=== PATIENT | female | born 1985 | race Caucasian/White ===

== ENCOUNTER 2018-02-03 14:26 | Inpatient (IN) | payer OTHER ==
[~2018-02-03] VITALS: Ht 170.2 cm; Wt 65.4 kg
[2018-02-03 15:42] LABS: BASOPHILS # (AUTO) 0.06 x10^3/uL (0-0.1); BASOPHILS % (AUTO) 0 % (0-1); EOSINOPHILS % (AUTO) 0 % (1-7); LYMPHOCYTES # (AUTO) 1.58 x10^3/uL (1-3.4); LYMPHOCYTES % (AUTO) 11 % (22-44); MD NO; MEAN CORPUSCULAR HEMOGLOBIN 31.7 pg (27.0-34.8); MEAN CORPUSCULAR HGB CONC 34.4 g/dL (32.4-35.8); MEAN PLATELET VOLUME 9.3 fL (7.4-10.4); MONOCYTES # (AUTO) 0.49 x10^3/uL (0.2-0.8); MONOCYTES % (AUTO) 3 % (2-9); NEUTROPHILS # (AUTO) 12.98 x10^3/uL (1.8-6.8); NEUTROPHILS % (AUTO) 86 % (42-75); PLATELET COUNT 239 x10^3/uL (130-400); RED BLOOD COUNT 4.83 x10^6/uL (3.82-5.3); RED CELL DISTRIBUTION WIDTH 12.8 % (9.6-15.2)
[2018-02-03 15:53] LABS: ALANINE AMINOTRANSFERASE 23 U/L (12-78); ALBUMIN 4.5 g/dL (3.4-5.0); ANION GAP 12 mmol/L (5-15); CALCIUM 9.6 mg/dL (8.5-10.1); CHLORIDE 108 mmol/L (98-107); CREATININE 0.81 mg/dL (0.55-1.02)
[2018-02-03 16:10] LABS: ALKALINE PHOSPHATASE 39 U/L (45-117); BILIRUBIN,TOTAL 1.1 mg/dL (0.2-1.0); TOTAL PROTEIN 8.1 g/dL (6.4-8.2)
[2018-02-03] MEDS ORDERED: SODIUM CHLORIDE 0.9% 1,000 ML IV ONE (16:10)
[2018-02-03] MEDS ORDERED: ONDANSETRON 2MG/ML, 2ML ONE (16:20)
[2018-02-03] MEDS ORDERED: SODIUM CHLORIDE 0.9% 1,000ML IVBOLUS ONE (16:30)
[2018-02-03] MEDS ORDERED: SODIUM CHLORIDE FLUSH 10ML SYR IVF ONE (16:30)
[2018-02-03] MEDS ORDERED: ONDANSETRON 2MG/ML, 2ML IVPush ONE (16:30)
[2018-02-03 17:14] LABS: CULTURE INDICATED? YES; MICROSCOPIC INDICATED
[2018-02-03] MEDS ORDERED: PROMETHAZINE 25 MG/ML, 1ML IM ONE (18:30)
[2018-02-03] MEDS ORDERED: PROMETHAZINE 25 MG/ML, 1ML ONE (18:56)
[2018-02-03] MEDS ORDERED: SODIUM CHLORIDE FLUSH 10ML SYR IVF PRN (21:30)
[2018-02-03] MEDS ORDERED: ACETAMINOPHEN 325 MG TABLET PO PRN (21:30)
[2018-02-03] MEDS ORDERED: PROMETHAZINE 25 MG/ML, 1ML IM PRN (21:30)
[2018-02-03] MEDS ORDERED: LABETALOL 5MG/ML, 20ML IVPush PRN (21:30)
[2018-02-03 22:03] VITALS: BP 116/71
[2018-02-03] MEDS: ONDANSETRON 2MG/ML, 2ML IVPush PRN (22:22)
[2018-02-03] MEDS: NS + 20MEQ KCL 1,000 ML IV SCH (22:22)
[2018-02-03 22:37] VITALS: BP 116/71
[2018-02-03] MEDS: METOCLOPRAMIDE 5 MG/ML, 2ML IVPush PRN (23:54)
[2018-02-04 02:31] VITALS: BP 107/63
[2018-02-04] MEDS: ONDANSETRON 2MG/ML, 2ML IVPush PRN (04:22)
[2018-02-04] MEDS: NS + 20MEQ KCL 1,000 ML IV SCH (05:19)
[2018-02-04 05:48] LABS: ANION GAP 11 mmol/L (5-15); CALCIUM 8.3 mg/dL (8.5-10.1); CHLORIDE 112 mmol/L (98-107)
[2018-02-04 05:49] LABS: CREATININE 0.54 mg/dL (0.55-1.02)
[2018-02-04] MEDS ORDERED: POTASSIUM CHLORIDE 40 MEQ in SODIUM CHLORIDE 0.9% 500 ML IV ONE (06:30)
[2018-02-04 08:00] VITALS: BP 126/79
[2018-02-04] MEDS ORDERED: DOXYLAMINE 25MG TABLET PO PRN (08:00)
[2018-02-04] MEDS: PYRIDOXINE 25MG TABLET PO SCH ×3 (08:20→19:43)
[2018-02-04] MEDS: METOCLOPRAMIDE 5 MG/ML, 2ML IVPush PRN ×2 (08:21→21:56)
[2018-02-04] MEDS: DOXYLAMINE 25MG TABLET PO SCH ×2 (10:00→19:43)
[2018-02-04] MEDS: THIAMINE 100MG TABLET PO SCH (12:07)
[2018-02-04] MEDS: ONDANSETRON ODT 4 MG PO PRN ×2 (12:08→18:26)
[2018-02-04] MEDS: LACTATED RINGERS 1,000 ML IV SCH ×2 (12:09→19:44)
[2018-02-04 14:00] VITALS: BP 120/75
[2018-02-04] MEDS: METOCLOPRAMIDE 10MG TABLET PO PRN (15:14)
[2018-02-04 15:23] LABS: ANION GAP 10 mmol/L (5-15); CALCIUM 8.4 mg/dL (8.5-10.1); CHLORIDE 107 mmol/L (98-107); CREATININE 0.54 mg/dL (0.55-1.02)
[2018-02-04 18:35] VITALS: BP 140/77
[2018-02-04] MEDS ORDERED: DOXYLAMINE 25MG TABLET PO SCH (21:00)
[2018-02-05] MEDS: ONDANSETRON ODT 4 MG PO PRN (00:22)
[2018-02-05 01:34] VITALS: BP 138/84
[2018-02-05] MEDS: LACTATED RINGERS 1,000 ML IV SCH ×2 (03:18→11:43)
[2018-02-05] MEDS: METOCLOPRAMIDE 5 MG/ML, 2ML IVPush PRN (04:02)
[2018-02-05 07:28] VITALS: BP 103/60
[2018-02-05] MEDS: PYRIDOXINE 25MG TABLET PO SCH ×3 (08:07→19:11)
[2018-02-05] MEDS: THIAMINE 100MG TABLET PO SCH (08:07)
[2018-02-05] MEDS: DOXYLAMINE 25MG TABLET PO SCH ×2 (08:08→19:11)
[2018-02-05] MEDS: OMEPRAZOLE 20 MG CAPSULE.DR PO SCH (11:41)
[2018-02-05 12:38] VITALS: BP 118/77
[2018-02-05] MEDS: METOCLOPRAMIDE 10MG TABLET PO PRN ×3 (13:06→19:10)
[2018-02-05 22:00] VITALS: BP 128/84
[2018-02-06] MEDS: LACTATED RINGERS 1,000 ML IV SCH (00:39)
[2018-02-06] MEDS: METOCLOPRAMIDE 10MG TABLET PO PRN (01:11)
[2018-02-06 03:23] VITALS: BP 121/76
[2018-02-06] MEDS: OMEPRAZOLE 20 MG CAPSULE.DR PO SCH (05:30)
[2018-02-06] MEDS ORDERED: LACTATED RINGERS 1,000 ML IV SCH ×2 (08:00→12:00)
[2018-02-06 08:19] VITALS: BP 125/81
[2018-02-06] MEDS: THIAMINE 100MG TABLET PO SCH (09:00)
[2018-02-06] MEDS ORDERED: PROMETHAZINE 25MG TABLET PO PRN (09:30)
[2018-02-06] MEDS: PYRIDOXINE 25MG TABLET PO SCH (10:11)
[2018-02-06] MEDS: DOXYLAMINE 25MG TABLET PO SCH (10:11)
[2018-02-06 11:14] LABS: CULTURE INDICATED? YES; MICROSCOPIC INDICATED
[2018-02-06] MEDS ORDERED: ONDA4TAB13 PO (13:02)
[2018-02-06] MEDS ORDERED: PROM25TA10 PO (13:02)
[2018-02-06] MEDS ORDERED: METO10TA2 PO (13:02)
[2018-02-06] MEDS ORDERED: DOXY1TAB3 PO (13:02)
[2018-02-06] MEDS ORDERED: RANI150T23 PO (13:40)
== END 2018-02-06 14:29 | disposition home or self-care (01) | DRG 833 ==
LOC: ED 17:28 → OBSVTOIN 21:05 → INTOOBSV 21:05 → EDIP 21:05 → 3NE 21:52 → DCLOUNGE 02-06 14:00
PROVIDERS: ADMIT Family Medicine; ATTEND Family Medicine
DX: O21.1 Hyperemesis gravidarum with metabolic disturbance (principal); Z3A.09 9 weeks gestation of pregnancy
CPT/HCPCS: 36415; 80048; 80053; 81001; 84702; 85025; 87086; 96372; 96374; 99285; G0378; J2405; J2550; J3480; Q0162; J2765; J7030; J7040; J7120

== ENCOUNTER 2018-09-12 00:55 | Inpatient (IN) | payer OTHER ==
[~2018-09-12] VITALS: Ht 167.6 cm; Wt 79.5 kg
[2018-09-14 08:00] VITALS: BP 124/78
== END 2018-09-14 14:15 | disposition home or self-care (01) | DRG 788 ==
LOC: LDOP 00:55 → LDIP 01:13 → 2NW 13:56
PROVIDERS: ADMIT Obstetrics & Gynecology; ATTEND Obstetrics & Gynecology
PROC: 10D00Z1 Extraction of Products of Conception, Low, Open Approach (ICD-10-PCS; principal; 2018-09-12)
DX: O62.1 Secondary uterine inertia (principal); O21.0 Mild hyperemesis gravidarum; O77.0 Labor and delivery complicated by meconium in amniotic fluid; Z37.0 Single live birth; Z3A.40 40 weeks gestation of pregnancy; Z90.49 Acquired absence of other specified parts of digestive tract
CPT/HCPCS: 36415; J3490; J7121; 82803; 85025; 86850; 86900; G0378; J0690; J1885; J2274; J2405; J2704; J3010; J2370; J2590; J2765; J7120